=== PATIENT | female | born 1995 | race Caucasian/White ===

== ENCOUNTER 2016-10-01 15:33 | Emergency (ER) | payer SELFPAY ==
[~2016-10-01] VITALS: Ht 170.2 cm; Wt 53.0 kg
[~2016-10-01 15:33] MED LIST: BUSP5 PO; PERM5%T TOP
[2016-10-01 15:43] VITALS: BP 143/80; PULSE 73; RESP 17; TEMP 98.2; O2SAT 100
[2016-10-01] MEDS ORDERED: ALBUAER3 INH (15:50)
--- NOTE | 2016-10-01 16:13 | PD ---
HPI Chief Complaint: Respiratory Symptoms Time Seen by Provider: 16:06 Travel History International Travel<30 days: No Contact w/Intl Traveler<30days: No Traveled to known affect area: No History of Present Illness HPI 21-year-old female presents to the emergency room for evaluation of nonproductive cough for the past 3 weeks. Patient was seen at another hospital at onset of symptoms and prescribed azithromycin, prednisone, albuterol inhaler , and one other medication. She has finished the prednisone and Z-Jordan but is still using the inhaler. Patient states she is concerned because of the persistence of cough. She states last night she had worsening of symptoms and felt increased shortness of breath which got better come to the emergency room today. Patient is concerned she has pneumonia. She reports associated chills and nausea but no objective fever or vomiting. PFSH Past Medical History Anxiety: Yes Diminished Hearing: No Gastrointestinal Disorders: Yes (IBS) Immunizations Current: Yes Influenza Vaccination: No ?: Not LMP: 09/17/16 : 0 Para: 0 Miscarriage: 0 : 0 Past Surgical History Surgical History: No Previous Surgery Social History Alcohol Use: Yes (COUPLE TIMES PER WEEK) Tobacco Use: Yes (1PPD) Substance Use: No Allergies-Medications (Allergen,Severity, Reaction): Coded Allergies: No Known Allergies (Unverified , 10/01/16) Reported Meds & Prescriptions Reported Meds & Active Scripts Active Reported Proair Hfa 8.5 GM Inh (Albuterol Sulfate) 90 Mcg/Act Aer 1 Puff INH Q4H PRN 108 mcg/actuation Review of Systems Except as stated in HPI: all other systems reviewed are Neg Physical Exam Narrative GENERAL: Well-nourished, well-developed female in no acute distress. Afebrile. Ambulatory. SKIN: Focused skin assessment warm/dry. HEAD: Normocephalic. EYES: No scleral icterus. No injection or drainage. NECK: Supple, trachea midline. No JVD or lymphadenopathy. CARDIOVASCULAR: Regular rate and rhythm without murmurs, gallops, or rubs. RESPIRATORY: Breath sounds equal bilaterally. No accessory muscle use. Rhonchi , rales, and wheezes in both lung junior. PSYCHIATRIC: No delusional thought processes. No hallucinations. Data Data Last Documented VS Vital Signs Date Time Temp Pulse Resp B/P Pulse Ox O2 Delivery O2 Flow Rate FiO2 10/01/16 15:43 98.2 73 17 143/80 100 Orders Chest, Pa & Lat (10/01/16 ) Albuterol-Ipratropium Neb (Duoneb Neb) (10/01/16 16:15) MDM Medical Decision Making Medical Screen Exam Complete: Yes Emergency Medical Condition: Yes Medical Record Reviewed: Yes Differential Diagnosis Bronchitis versus pneumonia versus viral syndrome Narrative Course 21-year-old female presents to the emergency room for evaluation of nonproductive cough for the past 3 weeks. Patient has been prescribed prednisone, Z-Jordan, and albuterol at an outside emergency room. She is concerned for persistence of cough and increased shortness of breath last night. PERC negative. Physical exam reveals coarse lung sounds bilaterally with wheezes and rales. Given 3 duo nebs in the emergency room. Patient has no increased work of breathing. She has 100% on room air. Given report of subjective fever, x-ray will be performed. X-ray is negative. Patient told to continue albuterol as needed and given expectant course of illness. She was told to follow up with a primary care physician or return to the emergency room for worsening symptoms. Counseled on smoking cessation. She understands and agrees to plan. Diagnosis Primary Impression: Bronchitis Referrals: Primary Care Physician Patient Instructions: Acute Bronchitis (ED), General Instructions Additional Instructions: Rest and drink plenty of fluids. Use inhaler as directed, as needed for wheezing. Follow-up with a primary care physician. Return to the emergency room for worsening symptoms. Disposition: 01 DISCHARGE HOME Condition: Stable Emily Bennett October 01, 2016 16:13
[2016-10-01] MEDS ORDERED: RESP: ALBUTEROL 2.5 MG/IPRATROPIUM 0.5 MG NEB (SCH) NEB ONE (16:15)
--- NOTE | 2016-10-01 17:31 | RADHPO ---
EXAM DATE/TIME: 10/01/2016 16:11 [facility] COMPARISON: No previous studies available for comparison. INDICATIONS : Short of breath, cough, chest pains MEDICAL HISTORY : None. SURGICAL HISTORY : None. ENCOUNTER: Initial ACUITY: 2 weeks PAIN SCORE: 7/10 LOCATION: Bilateral chest FINDINGS: PA and lateral views of the chest demonstrate the lungs to be symmetrically aerated without evidence of mass, infiltrate or effusion. The cardiomediastinal contours are unremarkable. Osseous structure s are intact. CONCLUSION: Normal examination. No significant change has occurred. Israel Garcia MD on October 01, 2016 at 17:25 Board Certified Radiologist. This report was verified electronically.
[2016-10-01 17:58] VITALS: BP 123/75
== END 2016-10-01 17:59 | disposition home or self-care (01) ==
LOC: PHEFT 15:33
DX: J40 Bronchitis, not specified as acute or chronic (principal); F17.210 Nicotine dependence, cigarettes, uncomplicated; K58.9 Irritable bowel syndrome, unspecified
CPT/HCPCS: 71020; 94664; 99283

== ENCOUNTER 2017-04-15 02:13 | Emergency (ER) | payer SELFPAY ==
[~2017-04-15 02:13] MED LIST changes: +ALBUAER3 INH; -BUSP5 PO; -PERM5%T TOP
[2017-04-15] MEDS ORDERED: RESP: ALBUTEROL 2.5 MG/IPRATROPIUM 0.5 MG NEB (SCH) NEB ONE ×3 (02:35)
[2017-04-15] MEDS ORDERED: methylPREDNISolone SOD SUCC 125 MG/2 ML VIAL IV ONE (02:35)
[2017-04-15] MEDS ORDERED: PHENAZOPYRIDINE HCL 200 MG TAB PO ONE (03:22)
[2017-04-15] MEDS ORDERED: NITROFURANTOIN MONOHYD MACROCR 100 MG CAP PO ONE (03:22)
[2017-04-15 05:09] LABS: BLOOD, URINE SMALL (NEG); GLUCOSE,URINE NEG (NEG); KETONE, URINE NEG (NEG); NITRITE,URINE POS (NEG)
[2017-04-15 05:10] LABS: URINE COLOR YELLOW (YELLW/STRAW)
[2017-04-15 05:11] LABS: BACTERIA, URINE MOD /hpf; COMMENT (UR) CULTURE INDICATED; CULTURE IF INDICATED CULTURE INDICATED
--- NOTE | 2017-04-15 05:18 | PD ---
HPI Chief Complaint: Complaint Time Seen by Provider: 02:15 Travel History International Travel<30 days: No Contact w/Intl Traveler<30days: No Traveled to known affect area: No History of Present Illness HPI The patient is a 21-year-old female who complains of pain on urination for 1 day and had blood in the urine since yesterday. She also complains of shortness of breath for 4 days. She does have a history of bronchitis. She denies any fever. She denies any chest pain, nausea, vomiting or diarrhea. She states is no possibility of . She smokes one pack a day. PFSH Past Medical History Anxiety: Yes Diminished Hearing: No Gastrointestinal Disorders: Yes (IBS) Immunizations Current: Yes : 0 Para: 0 Miscarriage: 0 : 0 Social History Alcohol Use: Yes (COUPLE TIMES PER WEEK) Tobacco Use: Yes (1PPD) Substance Use: No Allergies-Medications (Allergen,Severity, Reaction): Coded Allergies: No Known Allergies (Unverified Allergy, Unknown, 04/15/17) Reported Meds & Prescriptions Reported Meds & Active Scripts Active Reported Proair Hfa 8.5 GM Inh (Albuterol Sulfate) 90 Mcg/Act Aer 1 Puff INH Q4H PRN 108 mcg/actuation Review of Systems Except as stated in HPI: all other systems reviewed are Neg Physical Exam Narrative GENERAL: The patient is alert, oriented 3 in minimal respiratory distress. Her vital signs are normal. SKIN: Focused skin assessment warm/dry. HEAD: Atraumatic. Normocephalic. EYES: Pupils equal and round. No scleral icterus. No injection or drainage. ENT: No nasal bleeding or discharge. Mucous membranes pink and moist. NECK: Trachea midline. No JVD. CARDIOVASCULAR: Regular rate and rhythm. No murmur appreciated. RESPIRATORY: No accessory muscle use. Clear to auscultation. Breath sounds equal bilaterally. GASTROINTESTINAL: Abdomen soft, non-tender except for slight suprapubic discomfort, nondistended. Hepatic and splenic margins not palpable. There is suprapubic discomfort to direct palpation but no flank tenderness is present. No guarding or rebound is present. MUSCULOSKELETAL: No obvious deformities. No clubbing. No cyanosis. No edema. NEUROLOGICAL: Awake and alert. No obvious cranial nerve deficits. Motor grossly within normal limits. Normal speech. PSYCHIATRIC: Appropriate mood and affect; insight and judgment normal. Data Data Orders Orders Albuterol-Ipratropium Neb (Duoneb Neb) (04/15/17 02:35) Albuterol-Ipratropium Neb (Duoneb Neb) (04/15/17 02:35) Albuterol-Ipratropium Neb (Duoneb Neb) (04/15/17 02:35) Methylprednisolone So Succ Inj (Solumedr (04/15/17 02:35) Nitrofurantoin Monohyd Macrocr (Macrobid (04/15/17 03:22) Phenazopyridine (Pyridium) (04/15/17 03:22) MDM Medical Decision Making Medical Screen Exam Complete: Yes Emergency Medical Condition: Yes Medical Record Reviewed: Yes Interpretation(s) The [id number] urine test is negative. The urinalysis is positive for infection. Differential Diagnosis Asthma, bronchitis, bronchospasm, cystitis, pyelonephritis Narrative Course The urine is positive for infection. The patient has no flank tenderness, fever , nausea, vomiting and pyelonephritis is unlikely. Her lungs cleared up and she feels much better with her bronchitis/bronchospasm. Diagnosis Primary Impression: Bronchitis with bronchospasm Additional Impression: Cystitis Additional Instructions: As we discussed, increase liquid intake. It is important to establish a good urine flow through your kidneys to fight a urine infection. Also, quit smoking. Follow-up with a primary care physician this week. Disposition: 01 DISCHARGE HOME Condition: Stable Jerardo Manzanares MD Apr 15, 2017 05:18
== END 2017-04-15 03:40 | disposition home or self-care (01) ==
LOC: PHED 02:13
DX: J40 Bronchitis, not specified as acute or chronic (principal); N30.90 Cystitis, unspecified without hematuria; B96.20 Unspecified Escherichia coli [E. coli] as the cause of diseases classified elsewhere; F17.210 Nicotine dependence, cigarettes, uncomplicated
CPT/HCPCS: 81001; 87077; 87086; 87186; 94640; 94664; 96374; 99284; J2930